=== PATIENT | female | born 1980 | race Hispanic/Latino ===

== ENCOUNTER 2019-11-30 12:04 | Outpatient (CLI) | payer OTHER ==
--- NOTE | 2019-11-30 12:28 | RAD ---
EXAM: XR Lumbar Spine 2 Or 3 View PROVIDED CLINICAL HISTORY: Low back pain for one month. No history of trauma. COMPARISON: None FINDINGS: There are 5 nonrib-bearing lumbar-type vertebral bodies. Osteophytes are seen anteriorly involving th e lower lumbar spine. There is mild narrowing of the intervertebral disc spaces of the lower lumbar spine greatest at the lumbosacral junction. The vertebral body heights are within normal limits. Late ral view is rotated, but no obvious subluxation is seen. No fracture is identified. Linear metallic densities overlie the pelvis bilaterally related to prior Essure procedure. IMPRESSION: Mild degenerative changes lower lumbar spine without evidence of fracture or subluxation.
== END 2019-11-30 12:05 | disposition home or self-care (01) ==
LOC: MADRAD 12:04
PROVIDERS: ATTEND Nurse Practitioner Family
DX: M47.26 Other spondylosis with radiculopathy, lumbar region (principal)
CPT/HCPCS: 72100

== ENCOUNTER 2020-07-06 16:42 | Emergency (ER) | payer OTHER ==
[~2020-07-06 16:42] MED LIST: HYDROmorphone 0.5 MG/0.5 ML SYRINGE ONE
[2020-07-06] MEDS ORDERED: Dexamethasone 10 MG/ML VIAL ONE (17:50)
[2020-07-06] MEDS ORDERED: Cyclobenzaprine 10 MG TAB ONE (17:50)
[2020-07-06] MEDS ORDERED: Ketorolac Tromethamine 60 MG/2 ML VIAL ONE (17:50)
[2020-07-06] MEDS ORDERED: HYDROmorphone 0.5 MG/0.5 ML SYRINGE ONE (19:27)
[2020-07-06 20:48] LABS: Bilirubin Negative (Negative); Blood, Urine Trace (Negative); Clarity Clear (Clear); Glucose, Urine (Dipstick) Negative (Negative); Ketone, Urine 15 mg/dL (Negative); Leukocyte Negative (Negative); Nitrite Negative (Negative); Protein, Urine (Dipstick) 100 mg/dL (Neg-Trace); Urobilinogen 0.2 mg/dL (Less than 2); pH, Urine 6.5 (5.0-9.0)
[2020-07-06 20:49] LABS: Specific Gravity, Urine 1.025 (1.002-1.036)
[2020-07-06 20:52] LABS: RBC/HPF 0-3 HPF (0-3); Squamous Epithelial 0-3 HPF (0-3); WBC/HPF 0-3 HPF (0-3)
[2020-07-06 20:53] LABS: Bacteria/HPF Rare-Few HPF (None Seen); Mucous/LPF 4+ LPF (<2+)
[2020-07-06] MEDS ORDERED: Sodium Chloride 0.9% 1,000 ML ONE (21:43)
[2020-07-06] MEDS ORDERED: Ondansetron PF 4 MG/2 ML Vial ONE (21:43)
[2020-07-06 22:13] LABS: #Monocytes 0.1 thou/uL (0.11-0.59); #Neutrophils 8.9 thou/uL (1.40-6.50); %Basophils 0.2 % (0.0-1.0); %Monocytes 0.6 % (0.0-10.0); %Neutrophils 89.2 % (42.0-75.0); Hemoglobin 13.4 g/dL (12.0-16.0); Mean Corpuscular HGB CONC 30.2 g/dL (32.0-36.0); Mean Corpuscular Hemoglobin 25.4 pg (27.0-31.0); Mean Corpuscular Volume 84.1 fL (78.0-98.0); Mean Platelet Volume 6.3 fL (7.4-10.4); Platelet Count 349 thou/uL (130-400); RBC Distribution Width 13.6 % (11.5-14.5); Red Blood Cell (RBC) Count 5.28 mill/uL (4.20-5.40)
[2020-07-06 22:32] LABS: ALT (SGPT) 42 U/L (8-55); AST (SGOT) 36 U/L (5-34); Albumin 4.1 g/dL (3.5-5.0); Alkaline Phosphatase 79 U/L (40-110); Anion Gap 16 mmol/L (10-20); BUN (Urea Nitrogen) 13 mg/dL (7.0-18.7); Bilirubin, Total 0.3 mg/dL (0.2-1.2); Calc. Creatinine Clearance 0 mL/min (70-130); Calcium 8.9 mg/dL (7.8-10.44); Carbon Dioxide 19 mmol/L (22-29); Chloride 107 mmol/L (98-107); Globulin 3.8 g/dL (2.4-3.5); Glucose 208 mg/dL (70-105); Potassium 4.2 mmol/L (3.5-5.1); Protein, Total 7.9 g/dL (6.0-8.3); Sodium 138 mmol/L (136-145)
[2020-07-06] MEDS ORDERED: Fentanyl 100 MCG/2 ML VIAL ONE (23:44)
== END 2020-07-07 00:36 | disposition short-term general hospital (02) ==
LOC: MADERS 16:42
DX: M54.42 Lumbago with sciatica, left side (principal)
CPT/HCPCS: 51701; 80053; 81003; 81015; 85025; 85652; 86140; 96372; 96374; 96375; J1100; J1170; J1885; J2405; J3010; J7050